=== PATIENT | female | born 1975 | race Caucasian/White ===

== ENCOUNTER 2024-05-29 09:17 | Emergency (ER) | payer OTHER ==
[2024-05-29 09:26] VITALS: BP 110/64; PULSE 63; RESP 18; TEMP 99; BMI 20.2
== END 2024-05-29 10:11 | disposition home or self-care (01) ==
LOC: FER 09:17
DX: S90.32XA Contusion of left foot, initial encounter (principal); S40.212A Abrasion of left shoulder, initial encounter; W18.30XA Fall on same level, unspecified, initial encounter
CPT/HCPCS: 73630-TC-LT; 99283-25